=== PATIENT | female | born 1960 | race Caucasian/White ===

== ENCOUNTER 2025-04-12 15:51 | Emergency (ER) | payer OTHER ==
[2025-04-12 16:06] VITALS: BP 123/83; PULSE 73; RESP 16; TEMP 98.6; BMI 25.1
[2025-04-12] MEDS ORDERED: METHOCARBAMOL 500 MG TABLET ONE (16:27)
[2025-04-12] MEDS ORDERED: ACETAMINOPHEN 500 MG TABLET (FP) ONE (16:27)
[2025-04-12] MEDS ORDERED: LIDOCAINE 4% PATCH TP ONE ×2 (16:27→16:31)
[2025-04-12] MEDS: LIDOCAINE 4% PATCH TP ONE (16:45)
[2025-04-12] MEDS: ACETAMINOPHEN 500 MG TABLET (FP) PO ONE (16:45)
[2025-04-12 17:09] LABS: URINE APPEARANCE CLEAR; URINE BILIRUBIN NEGATIVE (NEGATIVE); URINE COLOR YELLOW; URINE GLUCOSE (UA) NEGATIVE (NEGATIVE); URINE KETONE TRACE (NEGATIVE); URINE LEUK ESTERASE NEGATIVE (NEGATIVE); URINE NITRITE NEGATIVE (NEGATIVE); URINE PROTEIN NEGATIVE (NEGATIVE); URINE UROBILINOGEN 1.0 mg/dL (0.2-1.0)
[2025-04-12] MEDS ORDERED: LIDOCAINE PATCH REMOVAL MC SCH (22:00)
== END 2025-04-12 17:59 | disposition home or self-care (01) ==
LOC: JERFT 15:51
DX: M62.830 Muscle spasm of back (principal); M54.50 Low back pain, unspecified; G89.29 Other chronic pain; X50.1XXA Overexertion from prolonged static or awkward postures, initial encounter
CPT/HCPCS: 81003; 87086; 99283-25